=== PATIENT | female | born 1960 ===

== ENCOUNTER → 2017-12-25 13:22 | Outpatient (CLI) | payer BC, SELFPAY ==
--- NOTE | 2017-12-25 13:22 | DI.REPORT_ITS ---
SYMPTOM/DIAGNOSIS: VAGUE LT SIDED POST CHEST PAIN, R07.89 PA AND LATERAL CHEST: The heart is normal in size. The lungs are clear. The mediastinal structures and pleura appear intact. CONCLUSION: Normal chest.
== END ==
PROVIDERS: PCP Family Medicine; Visit Provider Family Medicine
DX: R07.89 Other chest pain (principal)
CPT/HCPCS: 71046

== ENCOUNTER → 2017-12-25 15:16 | Outpatient (CLI) | payer BC, SELFPAY ==
--- NOTE | 2017-12-25 14:20 | DI.REPORT_ITS ---
SYMPTOM/DIAGNOSIS: T SPINE PAIN, H/O COMP FX THORACIC SPINE: There is a mild superior endplate compression fracture of T 9. The vertebral bodies are otherwise unremarkable. There is no evidence of gross disc space narrowing. The posterior elements appear intact. The paravertebral soft tissues are normal. IMPRESSION: There is an apparent old mild superior endplate compression fracture of T 9.
== END ==
PROVIDERS: PCP Family Medicine; Visit Provider Family Medicine
DX: M54.6 Pain in thoracic spine (principal); M48.54XD Collapsed vertebra, not elsewhere classified, thoracic region, subsequent encounter for fracture with routine healing; G89.29 Other chronic pain
CPT/HCPCS: 72072

== ENCOUNTER → 2017-12-29 10:05 | Outpatient (CLI) | payer BC, SELFPAY ==
[2017-12-29 11:53] LABS: Absolute Basophil Count 0.03 k/cumm (0.0-0.2); Absolute Eosinophil Count 0.07 k/cumm (0.0-0.7); Absolute Lymphocyte Count 1.22 k/cumm (1.2-3.4); Absolute Monocyte Count 0.33 k/cumm (0.11-0.7); Absolute Neutrophil Count 2.22 k/cumm (1.2-6.7); Basophils % 0.8; Eosinophils % 1.8; HCT 42.3 % (36.0-46.0); HGB 13.9 g/dL (12.0-15.5); Lymphocytes % 31.5; Mean Corp. HGB Concentration 32.9 g/dL (32.0-36.0); Mean Corpuscular Hemoglobin 30.3 pg (27.0-33.0); Mean Corpuscular Volume 92.4 fL (80-95); Mean Platelet Volume 11.4 fL (8.0-11.0); Monocytes % 8.5; Neutrophils % 57.4; Platelet Count 246 x1000/uL (130-400); RBC 4.58 m/cumm (4.00-5.20); RBC Distribution Width 13.2 % (11.7-14.6); White Blood Cell Count 3.87 k/cumm (4.4-10.8)
[2017-12-29 12:11] LABS: ALT 20 U/L (12-78); AST 13 U/L (15-37); Albumin 3.6 g/dL (3.4-5.0); Alkaline Phosphatase 100 U/L (46-116); Anion Gap 6.7 mmol/L (3-11); BUN 12 mg/dL (7-18); Bilirubin, Total 0.4 mg/dL (0.2-1.0); CO2 31.3 mmol/L (21.0-32.0); CREATININE 0.59 mg/dL (0.55-1.02); Calcium 8.7 mg/dL (8.5-10.1); Chloride 104 mmol/L (98-107); Glucose 82 mg/dL (70-100); Potassium 4.2 mmol/L (3.5-5.1); Sodium 142 mmol/L (136-145); Total Protein 7.1 g/dL (6.4-8.2)
[2017-12-29 12:22] LABS: Vitamin D 25 Total 29.1 ng/ml (30-100)
[2017-12-29 14:31] LABS: Hemoglobin A1C 5.5 % (4.5-6.2)
[2017-12-31 13:45] LABS: HLA-B27 Result Negative
== END ==
PROVIDERS: PCP Family Medicine; Visit Provider Family Medicine
DX: E55.9 Vitamin D deficiency, unspecified (principal); R73.09 Other abnormal glucose; G89.29 Other chronic pain; M54.6 Pain in thoracic spine; R14.0 Abdominal distension (gaseous); Z86.2 Personal history of diseases of the blood and blood-forming organs and certain disorders involving the immune mechanism
CPT/HCPCS: 36415; 80053; 82306; 86812; 83036; 85025; 86140

== ENCOUNTER → 2018-01-01 01:16 | Outpatient (CLI) | payer BC, SELFPAY ==
--- NOTE | 2018-01-01 15:45 | DI.REPORT_ITS ---
SYMPTOM/DIAGNOSIS: CHRONIC BILATERAL THORACIC BACK PAIN M54.6 MRI THORACIC SPINE: Comparison is made with plain films dated 25 Dec 2017 T1, T2, STIR and T2 3-D sagittal and T2 axial sequences were performed. There is slight compression of the superior end plate of T-9. There is normal signal in the T9 vertebral body consistent with an old compression fracture. There is no evidence of retropulsion. There is minimal disc bulging and small end plate osteophytes. The osteophytes are greatest at T7,8 which projects anteriorly. There is a mild amount of degenerative signal change in the anterior aspect of T7-8 vertebral end plates. No disc herniation or mass is seen. The central canal is widely patent. No neural foraminal narrowing is seen. IMPRESSION: Old T-9 compression fracture. Mild degenerative disc changes, greatest at T-7,8 anteriorly
== END ==
PROVIDERS: PCP Family Medicine; Visit Provider Family Medicine
DX: M54.6 Pain in thoracic spine (principal); M51.34 Other intervertebral disc degeneration, thoracic region; G89.29 Other chronic pain
CPT/HCPCS: 72146

== ENCOUNTER → 2018-01-06 10:44 | Outpatient (CLI) | payer BC, SELFPAY ==
[2018-01-06 12:47] LABS: Abs Immature Grans 0.01 k/cumm (0.0-0.09); Absolute Basophil Count 0.02 k/cumm (0.0-0.2); Absolute Eosinophil Count 0.06 k/cumm (0.0-0.7); Absolute Lymphocyte Count 1.24 k/cumm (1.2-3.4); Absolute Monocyte Count 0.36 k/cumm (0.11-0.7); Absolute Neutrophil Count 2.91 k/cumm (1.2-6.7); Basophils % 0.4; Eosinophils % 1.3; HCT 42.3 % (36.0-46.0); HGB 13.7 g/dL (12.0-15.5); Immature Grans % 0.2; Mean Corp. HGB Concentration 32.4 g/dL (32.0-36.0); Mean Corpuscular Hemoglobin 30.3 pg (27.0-33.0); Mean Corpuscular Volume 93.6 fL (80-95); Mean Platelet Volume 11.1 fL (8.0-11.0); Monocytes % 7.8; Neutrophils % 63.3; Platelet Count 252 x1000/uL (130-400); RBC 4.52 m/cumm (4.00-5.20); RBC Distribution Width 13.2 % (11.7-14.6)
[2018-01-07 13:47] LABS: Albumin 59.5 % (55.8-66.1); Total Protein 6.7 g/dl (6.3-8.2)
== END ==
PROVIDERS: PCP Family Medicine; Visit Provider Family Medicine
DX: D72.818 Other decreased white blood cell count (principal); G89.29 Other chronic pain; M54.6 Pain in thoracic spine
CPT/HCPCS: 36415; 84165; 85025

== ENCOUNTER → 2018-01-12 00:15 | Outpatient (CLI) | payer BC, SELFPAY ==
--- NOTE | 2018-01-12 06:59 | DI.REPORT_ITS ---
SYMPTOM/DIAGNOSIS: LUQ PAIN, R10.12, H/O T 9 COMP FX ABDOMEN ULTRASOUND: Routine examination. Comparison is made with 03/01/15. The aorta and IVC are unremarkable. The liver is unremarkable. The patient is status post cholecystectomy. The common duct is within normal limits at .4 cm. The pancreas, kidneys and spleen are all unremarkable. The left upper quadrant was evaluated sonographically and is unremarkable. IMPRESSION: Status post cholecystectomy. Otherwise unremarkable abdomen ultrasound.
== END ==
PROVIDERS: PCP Family Medicine; Visit Provider Family Medicine
DX: R10.12 Left upper quadrant pain (principal); Z90.49 Acquired absence of other specified parts of digestive tract
CPT/HCPCS: 76700

== ENCOUNTER 2018-05-26 11:04 | Outpatient (REF) | payer BC, SELFPAY ==
--- NOTE | 2018-05-26 09:30 | PAPFT_PTH ---
PATIENT: Josselin Carty LOC: [facility] U#:[id number] AGE/SX: 57/F ROOM: RE05/26/[address]: Candie Stoner MD, DC : 1960 BED: DIS: 05/26/2018 SPEC #: [id number] RECD: 05/26/18 13:04 STATUS: PRADIP REQ #: [id number] AMBERLY: 05/26/18 09:[address]: Candie Stoner DEPT: [facility] Cytology RECD BY: Halie Thompson Tissues: 1 - CX/ENDOCX FOR PAP SMEARS Procedures: PAP THIN PREP/UVM Screening HPV DNA PROBE Comments: [id number]
== END 2018-05-26 11:24 ==
LOC: LBN 11:04
PROVIDERS: PCP Family Medicine; Visit Provider Family Medicine
DX: Z12.4 Encounter for screening for malignant neoplasm of cervix (principal); Z11.51 Encounter for screening for human papillomavirus (HPV)
CPT/HCPCS: 88142; 87624

== ENCOUNTER 2018-06-17 05:21 | Outpatient (CLI) | payer BC, SELFPAY ==
--- NOTE | 2018-06-17 14:04 | DI.US_ITS ---
SYMPTOMS/DIAGNOSIS: DYSFUNCTIONAL UTERINE BLEEDING, N93.8, FEELS LIKE PERIOD, POSTMENOPAUSAL X 3 YEARS PELVIC ULTRASOUND: Pelvic ultrasound was performed transabdominally and transvaginally. Please see the accompanying data sheet for measurements of the pelvic structures. The ovaries are not visualized transabdominally or transvaginally. There is no free fluid identified in the cul-de-sac. The uterus is unremarkable in appearance with a 4 mm homogeneous endometrial stripe. Limited scanning of the kidneys is unremarkable. CONCLUSION: Negative pelvic ultrasound. The ovaries are not visualized.
[2018-06-17 14:09] LABS: Abs Immature Grans 0.01 k/cumm (0.0-0.09); Absolute Basophil Count 0.04 k/cumm (0.0-0.2); Absolute Eosinophil Count 0.24 k/cumm (0.0-0.7); Absolute Monocyte Count 0.53 k/cumm (0.11-0.7); Absolute Neutrophil Count 4.32 k/cumm (1.2-6.7); Basophils % 0.6; Eosinophils % 3.5; HCT 39.4 % (36.0-46.0); HGB 13.1 g/dL (12.0-15.5); Immature Grans % 0.1; Lymphocytes % 24.9; Mean Corp. HGB Concentration 33.2 g/dL (32.0-36.0); Mean Corpuscular Hemoglobin 31.1 pg (27.0-33.0); Mean Corpuscular Volume 93.6 fL (80-95); Mean Platelet Volume 10.4 fL (8.0-11.0); Monocytes % 7.7; Neutrophils % 63.2; Platelet Count 258 x1000/uL (130-400); RBC 4.21 m/cumm (4.00-5.20); RBC Distribution Width 13.9 % (11.7-14.6); White Blood Cell Count 6.84 k/cumm (4.4-10.8)
[2018-06-17 15:27] LABS: TSH (W/Ref FT4) 1.54 uIU/mL (0.358-3.74)
== END 2018-06-17 05:41 ==
PROVIDERS: PCP Family Medicine; Visit Provider Family Medicine
DX: N93.8 Other specified abnormal uterine and vaginal bleeding (principal)
CPT/HCPCS: 36415; 76830; 76856; 84443; 85025

== ENCOUNTER 2018-06-25 13:39 | Outpatient (REF) | payer BC, SELFPAY ==
--- NOTE | 2018-06-25 12:00 | ENDOMET_PTH ---
PATIENT: Josselin Carty LOC: [facility] U#:[id number] AGE/SX: 57/F ROOM: RE06/25/[address]: Candie Stoner MD, DC : 1960 BED: DIS: 06/25/2018 SPEC #: [id number] RECD: 06/25/18 18:29 STATUS: PRADIP REQ #: [id number] AMBERLY: 06/25/18 12:[address]: Candie Stoner DEPT: Surgical Specimen RECD BY: Halie Thompson Tissues: 1 - ENDOMETRIUM BX/TEAGAN Procedures: GROSS AND MICRO LEVEL 4 Comments: [id number]
== END 2018-06-25 13:59 ==
LOC: LBN 13:39
PROVIDERS: PCP Family Medicine; Visit Provider Family Medicine
DX: N85.8 Other specified noninflammatory disorders of uterus (principal); N83.8 Other noninflammatory disorders of ovary, fallopian tube and broad ligament
CPT/HCPCS: 88305

== ENCOUNTER 2018-06-29 09:17 | Outpatient (CLI) | payer BC, SELFPAY ==
[2018-06-30 11:37] LABS: LH 29.6 mIU/ml
== END 2018-06-29 09:37 ==
PROVIDERS: PCP Family Medicine; Visit Provider Family Medicine
DX: N93.8 Other specified abnormal uterine and vaginal bleeding (principal)
CPT/HCPCS: 36415; 83001; 83002

== ENCOUNTER 2019-01-06 10:37 | Outpatient (CLI) | payer BC, SELFPAY ==
[2019-01-06 13:25] LABS: TSH (W/Ref FT4) 1.81 uIU/mL (0.36-3.74); Vitamin B12 497 pg/mL (193-986)
[2019-01-06 13:34] LABS: Hemoglobin A1C 5.4 % (4.5-6.2)
== END 2019-01-06 10:57 ==
PROVIDERS: PCP Family Medicine; Visit Provider Family Medicine
DX: G62.9 Polyneuropathy, unspecified (principal)
CPT/HCPCS: 36415; 82607; 83036; 84443

== ENCOUNTER 2019-10-01 08:01 | Outpatient (CLI) | payer BC, SELFPAY ==
[2019-10-01 14:13] LABS: Calculated LDL 93 mg/dL (<100); Cholesterol 207 mg/dL (<200); Glucose 93 mg/dL (74-106); HDL Cholesterol 100 mg/dL (40-60); Triglyceride 70 mg/dL (<150)
[2019-10-01 21:09] LABS: Rheumatoid Factor 18.9 IU/mL (<12.0)
[2019-10-04 08:49] LABS: Cyclic Citrullinated Peptide <2.5 U/mL (<5.0)
[2019-10-04 14:37] LABS: ANA Interpretation Negative (Negative)
== END 2019-10-01 08:21 ==
PROVIDERS: PCP Family Medicine; Visit Provider Family Medicine
DX: Z00.00 Encounter for general adult medical examination without abnormal findings (principal); Z13.220 Encounter for screening for lipoid disorders
CPT/HCPCS: 36415; 80061; 82947; 86200; 86038; 86431

== ENCOUNTER 2019-10-14 07:22 | Outpatient (CLI) | payer BC, SELFPAY ==
--- NOTE | 2019-10-14 07:45 | DI.RAD_ITS ---
EXAM: XR HIP PELVIS ADULT BL CLINICAL HISTORY: hip pain,M25.559. TECHNIQUE: 2D digital imaging was performed. COMPARISON: US US PELVIS TRANSVAGINAL from 06/17/2018 FINDINGS: BONES: No acute fracture is present. No bony destructive lesion is seen. JOINTS: No dislocation present. Hip joint spaces are well maintained. There is minimal acetabular sp urring. There is mild spurring of the SI joints. SOFT TISSUE: Normal. IMPRESSION: Mild degenerative changes. DATA REPOSITORY: RADIATION DOSE DELIVERED:
--- NOTE | 2019-10-14 07:45 | DI.RAD_ITS ---
EXAM: XR LUMBAR SPINE COMPLETE INDICATION: back and hip pain,M54.5,M25.50. COMPARISON: DX DEXA BONE DENSITY WITH GABINO from 12/26/2010 TECHNIQUE: 2D digital imaging was performed. FINDINGS: The vertebral bodies are well maintained in height. There are small endplate osteophytes. There are mild facet degenerative changes at L4-5 and L5-S1. The disc spaces are well maintained. There is n o significant scoliosis. No spondylolysis or spondylolisthesis is seen. IMPRESSION: Mild degenerative changes. DATA REPOSITORY: RADIATION DOSE DELIVERED:
== END 2019-10-14 07:42 ==
PROVIDERS: PCP Family Medicine; Visit Provider Family Medicine
DX: M25.551 Pain in right hip (principal); M25.552 Pain in left hip; M54.5 Low back pain; M16.0 Bilateral primary osteoarthritis of hip; M47.817 Spondylosis without myelopathy or radiculopathy, lumbosacral region
CPT/HCPCS: 73521; 72110

== ENCOUNTER 2020-05-18 03:04 | Outpatient (CLI) | payer BC, SELFPAY ==
[2020-05-19 12:38] LABS: COVID-19 RT-PCR UVMMC Result Negative (Negative)
== END 2020-05-18 03:24 ==
PROVIDERS: PCP Family Medicine; Visit Provider Internal Medicine Cardiovascular Disease
DX: Z11.59 Encounter for screening for other viral diseases (principal); Z01.810 Encounter for preprocedural cardiovascular examination
CPT/HCPCS: U0003

== ENCOUNTER 2020-05-23 00:59 | Outpatient (CLI) | payer BC, SELFPAY ==
--- NOTE | 2020-05-23 07:45 | DI.NM_ITS ---
APPROVED REPORT Exam: Exercise Treadmill Patient Location: Out-Patient Room/Bed: Stress Nurse: Patti Egan RN Ordering Provider:JOSE GIMENEZ, Contact Number: BMI: 26.30 Baseline Rhythm: Sinus Rhythm Indications: Chest pain/pressure. Medical History Medical History: Chronic back pain, Shoulder pain, GERD, Vericose veins, HTN Cardiac Medications: Omeprazole., Allergies: Penicillins. Cardiac Risk Factors: FHX of CAD, HTN, Smoker (former) Previous Cardiac Procedures: None Pretest Chest Pain Characteristics: None Exercise History: Physically active Physical Disabilities: None Lung Sounds: Clear to auscultation Heart Sounds: Regular Stress Test Details Test: Exercise stress testing was performed using a Justin protocol. Nuclear Acquisition: Rest Tc-99m/Stress Tc-99m 1 day Rest Isotope: Tc-99m Sestamibi. Dose: 10.5 Date: 05/23/2020 Injection Time: 1035 Stress Isotope: Tc-99m Sestamibi. Dose: 32.6 Date: 05/23/20 Injection Time: 1200 HR Resting HR Supine: 67 bpm Max Heart Rate (APMHR): 162.351036 bpm Resting HR Standin bpm Target HR (85% APMHR): 137.719787 bpm Max HR Achieved: 171 bpm % of APMHR: 105.56 Recovery HR: 94 bpm HR response to stress: Normal HR response to stress BP Resting BP Supine: 110/88 mmHg Resting BP Standin/88 mmHg Max BP: 188/78 mmHg Recovery BP: 134/78 mmHg BP response to stress: Normal blood pressure response to stress. Comment: Patient denies dizziness. Question accuracy of first BP. ECG Resting ECG: Sinus Rhythm Ectopy: None. Stress ECG: Sinus Tachycardia ST Change: No significant ST segment changes noted. Arrhythmia: None Recovery ECG: Sinus Rhythm Recovery ST Change: No significant ST segment changes noted. Recovery Arrhythmia: Brief episode of trigeminy. Clinical Reason for Termination: Dyspnea Stress Symptoms: Dyspnea Exercise duration: 11 min12 sec Highest Stage Reached: Stage 4: 4.2 mph at 16% grade. Exercise capacity: 13.48 METs Stress ECG Conclusion 1. The patient exercised for 11 minutes (13 METS). The patient no symptoms suggestive of ischemia. 2. There was no evidence of ischemia on the ECG portion of the exam. Stress Test Summary STAGE Time (mins) Speed (mph) Grade (%) HR BP SYMPTOMS METS Supine 67 110/88 Standing 75 150/88 1 3 1.7 10 114 162/74 4.6 2 6 2.5 12 136 170/68 7 3 9 3.4 14 150 172/70 10.2 1 min recovery 152 188/78 3 min recovery 109 156/82 6 min recovery 94 134/78 MPI Conclusion The patient's ejection fraction was 60% with stress. There were no wall motion abnormalities. There is no evidence of ischemia in the imaging portion of the exam. This represents a normal SPECT stress test. Radiologist Interpretation Radiologist Interpretation by: Rolan Wu MD Interpretation Date/Time: 05/23/2020 15:35:42
== END 2020-05-23 01:19 ==
PROVIDERS: PCP Family Medicine; Visit Provider Family Medicine
DX: R07.9 Chest pain, unspecified (principal); Z82.49 Family history of ischemic heart disease and other diseases of the circulatory system; I10 Essential (primary) hypertension; Z87.891 Personal history of nicotine dependence
CPT/HCPCS: 78452; 93017

== ENCOUNTER 2020-08-10 12:23 | Outpatient (REF) | payer BC, SELFPAY ==
--- NOTE | 2020-08-10 08:30 | PAPFT_PTH ---
PATIENT: Josselin Carty LOC: [facility] U#:[id number] AGE/SX: 59/F ROOM: RE08/10/[address]: Candie Stoner MD, DC : 1960 BED: DIS: 08/10/2020 SPEC #: [id number] RECD: 08/10/20 12:49 STATUS: WILMANNikki RELaron #: [id number] AMBERLY: 08/10/20 08:[address]: Cnadie Stoner DEPT: [facility] Cytology RECD BY: Halie Thompson Tissues: 1 - CX/ENDOCX FOR PAP SMEARS Procedures: PAP THIN PREP/UVM Screening HPV DNA PROBE Comments: [id number]
== END 2020-08-10 12:24 | disposition home or self-care (01) ==
LOC: LBN 12:23
PROVIDERS: PCP Family Medicine; Visit Provider Family Medicine
DX: Z12.4 Encounter for screening for malignant neoplasm of cervix (principal); Z11.51 Encounter for screening for human papillomavirus (HPV); Z87.410 Personal history of cervical dysplasia
CPT/HCPCS: 88142; 87624

== ENCOUNTER 2020-08-15 02:01 | Outpatient (CLI) | payer BC, SELFPAY ==
--- NOTE | 2020-08-15 06:30 | DI.MAMMO_ITS ---
EXAM: MAMMO SCREENING CLINICAL HISTORY: screening,Z12.39 TECHNIQUE: Mammograms were interpreted according to the usual protocol including computer analysis w [employer] CAD system, tomosynthesis and C-view imaging. COMPARISON: 2011 FINDINGS: The breasts are composed of scattered fibroglandular densities, Breast Density category B. No suspicious masses or suspicious microcalcifications are seen. No skin thickening or abnormal axillary lymph nodes are seen. There has been no significant change from prior exams. IMPRESSION: BI-RADS Category 1, Negative mammogram Yearly screening mammography is recommended. Breast Density - Category B, scattered fibroglandular densities. A negative radiographic report should not delay biopsy if a dominant or clinically suspicious mass is present. Up to ten percent of cancers are not identified on mammography. A negative report may reinforce clinical impression. Adenosis and dense breasts may obscure an underlying neoplasm. False positive reports average 6 to 10%. Patient will receive a letter notifying them of these results.
== END 2020-08-15 02:21 ==
PROVIDERS: PCP Family Medicine; Visit Provider Family Medicine
DX: Z12.31 Encounter for screening mammogram for malignant neoplasm of breast (principal)
CPT/HCPCS: 77063; 77067

== ENCOUNTER 2021-09-07 06:09 | Day surgery (SDC) | payer BC, SELFPAY ==
--- NOTE | 2021-09-06 21:46 | PDOC.DSDIS_ITS ---
Discharge Plan Disposition Patient Disposition: HOME Condition: Good Discharge Details Reason For Visit: colon scope Attending Provider: Letitia Marquez Primary Care Provider: Candie Stoner Home Meds and New Rx's Prescriptions: No Action cholecalciferol (vitamin D3) 400 unit capsule 400 unit PO DAILY 0RF glucosamine HCl 500 mg tablet 500 mg PO BID 0RF melatonin 5 mg tablet See Rx Instructions PO HS PRN0RF Rx Instructions: 1-2 Tabs PO bedtime PRN; omeprazole 20 mg capsule,delayed release(DR/EC) 20 mg PO DAILY PRN (Reason: gerd) Qty: 90 5RF valacyclovir [Valtrex] 500 mg tablet 500 mg PO BID PRN (Reason: herpes) Qty: 180 3RF Rx Instructions: use as needed for outbreaks duloxetine 60 mg capsule,delayed release(DR/EC) 60 mg PO DAILY Qty: 90 6RF mometasone 50 mcg/actuation spray,non-aerosol 2 spray NS DAILY Qty: 51 4RF estradiol [Yuvafem] 10 mcg tablet QWEEK 0RF Rx Instructions: 10 mcg vaginally Discharge Instructions Additional Instructions: DSU Colonoscopy Post- Op Instructions Instructions for Everyone who is given Anesthesia: For your safety, please do the following for the next twenty-four (24) hours: *Do Not operate a motor vehicle (car, truck, motorcycle, etc.) *Do Not drink alcoholic beverages or use any recreational drugs for the first 24 hours or while taking pain medications. The medications in your body may have a reaction that can be dangerous. *Do Not make any important decisions or sign any important papers. Findings: cystocele. Rectocele diverticula Follow up: Repeat colonoscopy in 5 years time because of family history of colorectal cancer, 1. No lifting over 20 pounds or strenuous activity for the first 24 hours after your procedure. After 24 hours there are no restrictions on your activity but you may feel fatigued for a few days. 2. After you arrive home you may have a light meal and return to your normal diet as you can tolerate it without feeling sick to your stomach. 3. You may have a bloated, gaseous feeling in your belly (abdomen) after a colonoscopy. Passing gas and belching will help. Walking or lying down on your left side with your knees flexed may relieve the discomfort. Call the office at [phone] (Office) or [phone] (Hospital) right away if you notice any of the following: a.Vomiting of blood or ?coffee ground stools?. b.Rectal bleeding 1Tbsp, blood clots or continuous bleeding. c.Severe belly (abdominal) pain. d.A hard distended belly (abdomen) and an inability to pass gas. 4. Please don?t expect to have a normal BM (bowel movement) for 2-3 days after your procedure. 5. If there are questions regarding the findings of your procedure, please contact your doctor 6. If you are unable to contact your doctor with a problem, contact the hospital at [phone]. 7. Continue all your regular medications unless directed otherwise. I understand the above instructions and have no questions. Signature of Patient or Adult Escort Name of Responsible Adult Escort Signature of Nurse Date/Time Activity:: see above Diet:: see above Discharge Orders Discharge Orders: Discharge Order (Routine); Ordered 09/06/21 Ordered By: Letitia Marquez
--- NOTE | 2021-09-06 21:48 | W.COLOREPORT ---
Colonoscopy Report Date of procedure: 09/07/21 Pre-op diagnosis general: family hx of CRC/enterocele Surgeon: Letitia Marquez Anesthesia Type: General:No Airway Disposition: same day Prep: Miralax/Dulcolax Procedure Description: After informed consent was obtained the patient was taken to the procedure room and placed in a left decubitous position. Monitors were applied and a time out was done. The patients name, date of , procedure, allergies to medications and metal in their body was reviewed. A modified pelvic exam was done prior to beginning the procedure which did show a moderate cystocele/rectocele. Patient was then sedated. Once sedated and comfortable a rectal exam was done. External exam: x1 small ext hemorrhoids. Internal exam revealed a normal sphincter tone and no palpable masses. The scope was then introduced and retrofelexed. No internal hemorrhoids were identified. The scope was then advanced to the cecum withoutdifficulty. The TI and appendiceal orifice were identified. The prep was be BPS 2 in all recio for total of 6.. The scope was then slowly retracted over minutes back into the rectum. there are no polyps or AVMs visualized today. She does have mild to moderate diverticular disease that does extend all the way over to the right colon. The mucosa is pink and healthy with normal bowel pattern. She has been having right lower quadrant pain and biopsies were taken in the cecum/80/60 cm and in the rectum. The scope was removed and the patient was woken up and taken back to Same day surgery in stable condition. The patient tolerated the procedure well and there were no immediate complications. Follow up: The patient should follow up in 5 years unless they develop changes in bowel habits or other new gastrointestinal complaints.
[2021-09-07 06:32] VITALS: BP 134/78; PULSE 77; RESP 16; TEMP 36.6; O2SAT 99
[2021-09-07] MEDS: Lactated Ringers 1,000 ML 80 ML IV (06:49)
--- NOTE | 2021-09-07 06:57 | ANES.PREOP_ITS ---
General Info Date of Service Date Performed: 09/07/21 Height: 5 ft 6 in Weight: 70.3 kg Body Mass Index (BMI): 25.0 Surgical Procedure: Operation Date: 09/07/21 07:35 Proposed Procedure Side Surgeon p Colonoscopy w/Biopsy Letitia Marquez, Meds Allergies and Home Medications Allergies Allergy/AdvReac Type Severity Reaction Status Date / Time Penicillins Allergy Intermediate Verified 09/07/21 06:25 Home Medication Medication Instructions Recorded cholecalciferol (vitamin D3) 10 400 unit PO DAILY 05/26/18 mcg (400 unit) capsule glucosamine HCl 500 mg tablet 500 mg PO BID tab 08/10/20 melatonin 5 mg tablet See Rx Instructions PO HS PRN 08/10/20 duloxetine 60 mg capsule,delayed 60 mg PO DAILY #90 cap 05/23/21 release omeprazole 20 mg capsule,delayed 20 mg PO DAILY PRN #90 tab-cap 05/23/21 release valacyclovir 500 mg tablet 500 mg PO BID PRN #180 tab 05/23/21 (Valtrex) mometasone 50 mcg/actuation nasal 2 spray NS DAILY #51 g 08/08/21 spray estradiol 10 mcg vaginal tablet QWEEK 09/07/21 (Yuvafem) Current Visit Medications: Current Medications Generic Name Dose Route Start Last Admin Trade Name Freq PRN Reason Stop Dose Admin Hyoscyamine Sulfate 0.125 mg 09/06/21 21:46 Hyoscyamine 0.125 Mg Sl/Oral/Chew SL DIRECTED PRN Ringer's Solution 1,000 mls @ 80 mls/hr 09/07/21 06:00 09/07/21 06:49 IV 10/06/21 23:59 80 mls/hr INFUSION GRAEME Administration IV Miscellaneous Supplies 1 each 09/07/21 06:00 Iv Access IV 10/06/21 23:59 DIRECTED GRAEME Ondansetron HCl 4 mg 09/06/21 21:46 Ondansetron 4 Mg/2 Ml Vial IVP Q4H PRN PRN Nausea / Vomiting Sodium Chloride 0 ml 09/07/21 06:00 Normal Saline Flush 10 Ml Syr IV 10/06/21 23:59 PRN PRN Sodium Chloride 0 ml 09/07/21 06:00 Normal Saline 10 Ml Vial IJ 10/06/21 23:59 DIRECTED PRN Sterile Water 0 ml 09/07/21 06:00 Water,Injection,Sterile 10 Ml Vial IJ 10/06/21 23:59 DIRECTED PRN PFSH Active Problems Active Problems: Problem Status Onset Code Family history of colon cancer requiring screening colonoscopy Z80.0 Anxiety F41.9 Chest pain R07.9 Hip pain M25.559 Arthralgia M25.50 Low back pain M54.5 Tinnitus, bilateral H93.13 Abnormal auditory perception of right ear H93.291 Right leg pain M79.604 DUB (dysfunctional uterine bleeding) N93.8 Dermatitis, dyshidrotic L30.1 Varicose veins of lower extremity 01/28/12 I83.90 Shoulder pain 06/09/14 M25.519 Rectocele 03/01/14 N81.6 Osteopenia 04/10/08 M85.80 Joint pain M25.50 Herpes 11/14/15 B00.9 Gastroesophageal reflux disease with esophagitis 02/21/15 K21.0 Fracture of thoracic spine S22.009A Eczema 03/01/14 L30.9 Dysphagia 04/17/03 R13.10 Diverticulosis of colon without diverticulitis 03/30/12 K57.30 Deviated nasal septum 06/09/14 J34.2 Chronic rhinitis 06/09/14 J31.0 Chronic bilateral thoracic back pain 12/25/17 M54.6, G89.29 Change in voice 05/18/15 R49.9 Change in mole 06/13/16 D22.9 Annual physical exam 04/04/15 Z00.00 Abdominal discomfort in right upper quadrant 09/18/16 R10.11 Medical History Medical History Allergic rhinitis Diverticulosis large intestine w/o perforation or abscess w/o bleeding Dysphagia Eczema Fracture of thoracic spine GERD (gastroesophageal reflux disease) Osteopenia Rectocele Varicose veins of both lower extremities Surgical History Surgical History Appendectomy (~2003) Cholecystectomy (02/11/12) Colonoscopy - MAC (~2006) 2006, 2011 Tobacco Smoking/Tobacco Use Status: Former Tobacco Use Passive smoking exposure: Yes Second hand exposure: Yes Alcohol Alcohol Intake: current Alcohol intake frequency: a few times a month Alcohol type: beer and wine Substance Use Substance use: Never Substance use type: does not use Vital Signs and Lab Results Vital Signs Most Recent Vital Signs in EMR: Most Recent Vital Signs Temp Pulse Resp BP Pulse Ox 36.6 C 77 16 134/78 99 09/07/21 06:32 09/07/21 06:32 09/07/21 06:32 09/07/21 06:32 09/07/21 06:32 Lab Results Blood Type / Crossmatch: No Data to Display Complete Blood Count: No Data to Display Complete Metabolic Panel: No Data to Display Liver Function Panel: No Data to Display Coagulation Panel: No Data to Display Cardiac Panel: No Data to Display Arterial Blood Gas: No Data to Display Venous Blood Gas: No Data to Display Pancreas Panel: No Data to Display Thyroid Panel: No Data to Display Infectious Disease: No Data to Display Blood Cultures: No Data to Display Toxicology Panel: No Data to Display Imaging and Studies Imaging and Studies Study information below may be from another EMR and interpreted by another provider. Please see original notes in EMR for more complete details. Stress Test Summary: Stress Test RESULTS Arrhythmias: None Angina: None HR response: Max 179 bpm; 106% of target BP response: Normal ST-T changes: MIBI SPECT images: Functional Capacity: Average functional capacity CHEST PAIN - none. ARRHYTHMIAS - none. EKG CHANGES - none. HEART AND BLOOD PRESSURE RESPONSE - normal. FUNCTIONAL CAPACITY - average. CONCLUSION: Negative for ischemia. Dictated by: SHABNAM PONCE MD Dictated:: 02/26/13<Electronically signed by SHABNAM PONCE MD> [id number] Transcribed Date: 02/26/13 Transcribed Time: 1129By: ANTHONY This is privileged, confidential information, intended only for the provider named. Any use or distribution by any person other than this provider is strictly prohibited. If you receive this report in error, please notify us immediately at [phone] and return the original report to us at the address above. Thank you. Anesthesia Assessment and Plan Anesthesia History Personal History: No History of Anesthesia Complications Family History: No Family History of Anesthesia Complications Exercise Tolerance Exercise Tolerance: Metabolic Equivalents>4 Pertinent Negatives Pertinent Negatives: No Symptoms of GERD, No Major Cardiovascular Symptoms or Complaints, No Major Pulmonary Symptoms or Complaints and No History of CVA/TIA Cardiac & Pulmonary Exam Cardiac Exam: Normal S1/S2 Heart Sounds Pulmonary Exam: Clear Bilateral Breath Sounds Implantable Cardiac Device Does patient have a Pacemaker or an ICD?: No Airway Exam Known Difficult Airway: No Mallampati Class: 1 Mouth Opening: Normal (> 3cm) Thyromental Distance: Greater than 3 cm Neck Range of Motion: Full ROM Neck Circumference: Normal Teeth Condition: Normal Dentition ASA Classification ASA Score: ASA 2 Emergency Case?: No NPO Status NPO Status: NPO Clears >2 hours, Solids >8 hours Anesthesia Plan Resuscitation Status: Full Code Anesthesia Technique: General Anesthesia Airway Planned: Natural Airway Monitors Used: Standard Monitors
--- NOTE | 2021-09-07 07:09 | ANES.PREOP_ITS ---
General Info Date of Service Date Performed: 09/07/21 Height: 5 ft 6 in Weight: 70.3 kg Body Mass Index (BMI): 25.0 Surgical Procedure: Operation Date: 09/07/21 07:35 Proposed Procedure Side Surgeon p Colonoscopy w/Biopsy Letitia Marquez, Meds Allergies and Home Medications Allergies Allergy/AdvReac Type Severity Reaction Status Date / Time Penicillins Allergy Intermediate Verified 09/07/21 06:25 Home Medication Medication Instructions Recorded cholecalciferol (vitamin D3) 10 400 unit PO DAILY 05/26/18 mcg (400 unit) capsule glucosamine HCl 500 mg tablet 500 mg PO BID tab 08/10/20 melatonin 5 mg tablet See Rx Instructions PO HS PRN 08/10/20 duloxetine 60 mg capsule,delayed 60 mg PO DAILY #90 cap 05/23/21 release omeprazole 20 mg capsule,delayed 20 mg PO DAILY PRN #90 tab-cap 05/23/21 release valacyclovir 500 mg tablet 500 mg PO BID PRN #180 tab 05/23/21 (Valtrex) mometasone 50 mcg/actuation nasal 2 spray NS DAILY #51 g 08/08/21 spray estradiol 10 mcg vaginal tablet QWEEK 09/07/21 (Yuvafem) Current Visit Medications: Current Medications Generic Name Dose Route Start Last Admin Trade Name Freq PRN Reason Stop Dose Admin Hyoscyamine Sulfate 0.125 mg 09/06/21 21:46 Hyoscyamine 0.125 Mg Sl/Oral/Chew SL DIRECTED PRN Ringer's Solution 1,000 mls @ 80 mls/hr 09/07/21 06:00 09/07/21 06:49 IV 10/06/21 23:59 80 mls/hr INFUSION GRAEME Administration IV Miscellaneous Supplies 1 each 09/07/21 06:00 Iv Access IV 10/06/21 23:59 DIRECTED GRAEME Ondansetron HCl 4 mg 09/06/21 21:46 Ondansetron 4 Mg/2 Ml Vial IVP Q4H PRN PRN Nausea / Vomiting Sodium Chloride 0 ml 09/07/21 06:00 Normal Saline Flush 10 Ml Syr IV 10/06/21 23:59 PRN PRN Sodium Chloride 0 ml 09/07/21 06:00 Normal Saline 10 Ml Vial IJ 10/06/21 23:59 DIRECTED PRN Sterile Water 0 ml 09/07/21 06:00 Water,Injection,Sterile 10 Ml Vial IJ 10/06/21 23:59 DIRECTED PRN PFSH Active Problems Active Problems: Problem Status Onset Code Family history of colon cancer requiring screening colonoscopy Z80.0 Anxiety F41.9 Chest pain R07.9 Hip pain M25.559 Arthralgia M25.50 Low back pain M54.5 Tinnitus, bilateral H93.13 Abnormal auditory perception of right ear H93.291 Right leg pain M79.604 DUB (dysfunctional uterine bleeding) N93.8 Dermatitis, dyshidrotic L30.1 Varicose veins of lower extremity 01/28/12 I83.90 Shoulder pain 06/09/14 M25.519 Rectocele 03/01/14 N81.6 Osteopenia 04/10/08 M85.80 Joint pain M25.50 Herpes 11/14/15 B00.9 Gastroesophageal reflux disease with esophagitis 02/21/15 K21.0 Fracture of thoracic spine S22.009A Eczema 03/01/14 L30.9 Dysphagia 04/17/03 R13.10 Diverticulosis of colon without diverticulitis 03/30/12 K57.30 Deviated nasal septum 06/09/14 J34.2 Chronic rhinitis 06/09/14 J31.0 Chronic bilateral thoracic back pain 12/25/17 M54.6, G89.29 Change in voice 05/18/15 R49.9 Change in mole 06/13/16 D22.9 Annual physical exam 04/04/15 Z00.00 Abdominal discomfort in right upper quadrant 09/18/16 R10.11 Medical History Medical History Allergic rhinitis Diverticulosis large intestine w/o perforation or abscess w/o bleeding Dysphagia Eczema Fracture of thoracic spine GERD (gastroesophageal reflux disease) Osteopenia Rectocele Varicose veins of both lower extremities Surgical History Surgical History Appendectomy (~2003) Cholecystectomy (02/11/12) Colonoscopy - MAC (~2006) 2006, 2011 Tobacco Smoking/Tobacco Use Status: Former Tobacco Use Passive smoking exposure: Yes Second hand exposure: Yes Alcohol Alcohol Intake: current Alcohol intake frequency: a few times a month Alcohol type: beer and wine Substance Use Substance use: Never Substance use type: does not use Vital Signs and Lab Results Vital Signs Most Recent Vital Signs in EMR: Most Recent Vital Signs Temp Pulse Resp BP Pulse Ox 36.6 C 77 16 134/78 99 09/07/21 06:32 09/07/21 06:32 09/07/21 06:32 09/07/21 06:32 09/07/21 06:32 Lab Results Blood Type / Crossmatch: No Data to Display Complete Blood Count: No Data to Display Complete Metabolic Panel: No Data to Display Liver Function Panel: No Data to Display Coagulation Panel: No Data to Display Cardiac Panel: No Data to Display Arterial Blood Gas: No Data to Display Venous Blood Gas: No Data to Display Pancreas Panel: No Data to Display Thyroid Panel: No Data to Display Infectious Disease: No Data to Display Blood Cultures: No Data to Display Toxicology Panel: No Data to Display Imaging and Studies Imaging and Studies Study information below may be from another EMR and interpreted by another provider. Please see original notes in EMR for more complete details. EKG Summary: Exam: Resting ECG Patient Location: O HR:58 bpm ECG Measurements Heart Rate 58 AXIS DC 164 P 37 QRSd 96 QRS 48 QT 432 T34 QTc 424 Conclusion Sinus bradycardia...rate< 60 Consider left ventricular hypertrophy...(S V1+R V5/V6) >3.25mV Stress Test Summary: Stress Test RESULTS Arrhythmias: None Angina: None HR response: Max 179 bpm; 106% of target BP response: Normal ST-T changes: MIBI SPECT images: Functional Capacity: Average functional capacity CHEST PAIN - none. ARRHYTHMIAS - none. EKG CHANGES - none. HEART AND BLOOD PRESSURE RESPONSE - normal. FUNCTIONAL CAPACITY - average. CONCLUSION: Negative for ischemia. Dictated by: SHABNAM PONCE MD Dictated:: 02/26/13<Electronically signed by SHABNAM PONCE MD> [id number] Transcribed Date: 02/26/13 Transcribed Time: 1129By: [email or web address] This is privileged, confidential information, intended only for the provider named. Any use or distribution by any person other than this provider is strictly prohibited. If you receive this report in error, please notify us immediately at [phone] and return the original report to us at the address above. Thank you. Anesthesia Assessment and Plan Anesthesia History Personal History: No History of Anesthesia Complications Family History: No Family History of Anesthesia Complications Exercise Tolerance Exercise Tolerance: Metabolic Equivalents>4 Cardiac & Pulmonary Exam Cardiac Exam: Normal S1/S2 Heart Sounds Pulmonary Exam: Clear Bilateral Breath Sounds Implantable Cardiac Device Does patient have a Pacemaker or an ICD?: No Airway Exam Known Difficult Airway: No Mallampati Class: 1 Mouth Opening: Normal (> 3cm) Thyromental Distance: Greater than 3 cm Neck Range of Motion: Full ROM Neck Circumference: Normal Teeth Condition: Normal Dentition ASA Classification ASA Score: ASA 2 Emergency Case?: No NPO Status NPO Status: NPO Clears >2 hours, Solids >8 hours Anesthesia Plan Resuscitation Status: Full Code Anesthesia Technique: General Anesthesia Airway Planned: Natural Airway Monitors Used: Standard Monitors
[2021-09-07 07:14] VITALS: BMI 25.0
--- NOTE | 2021-09-07 07:49 | BOWEL_PTH ---
PATIENT: Josselin Carty LOC: [facility] U#:[id number] AGE/SX: 61/F ROOM: RE09/07/[address]: Letitia Marquez : 1960 BED: DIS: 09/07/2021 SPEC #: [id number] RECD: 09/07/21 12:03 STATUS: PRADIP RELaron #: [id number] AMBERLY: 09/07/21 07:[address]: Letitia Marquez DEPT: Surgical Specimen RECD BY: Halie Thompson ENTERED: 09/07/21 12:06 SP TYPE: Bowel OTHR DR: Candie Stoner MD, DC Tissues: 1 - BIOPSY BOWEL 2 - BIOPSY BOWEL 3 - BIOPSY BOWEL 4 - BIOPSY BOWEL Procedures: GROSS AND MICRO LEVEL 4 Comments: [id number]
[2021-09-07 08:05] VITALS: BP 130/90; PULSE 70; RESP 16; TEMP 36.5; O2SAT 97
--- NOTE | 2021-09-07 08:19 | W.ANESPOSTOP ---
Postoperative Evaluation Date, Time and Location Date Performed: 09/07/21 Time Performed: 08:19 Patient Location: Day Surgery Unit Vital Signs Most Recent Imported Vital Signs: Most Recent Vital Signs Temp Pulse Resp BP Pulse Ox 36.5 C 70 16 130/90 97 09/07/21 08:05 09/07/21 08:05 09/07/21 08:05 09/07/21 08:05 09/07/21 08:05 Pain Score Most Recent Pain Score: Most Recent Pain Score Pain Level 0 09/07/21 08:05 Assessment Mental Status: Awake (Alert & Oriented to Patient Baseline) Airway and Respiratory Function: Patent airway with normal (patient baseline) respiratory exam Cardiovascular Function: Hemodynamically Stable Hydration Status: Adequately Hydrated Nausea & Vomiting: No Nausea or Vomiting Pain: Pt. Denies Any Pain Peripheral Nerve Block: Patient did not receive a nerve block
--- NOTE | 2021-09-07 08:23 | PDOC.DSDIS_ITS ---
Discharge Plan Disposition Patient Disposition: HOME Condition: Good Discharge Details Reason For Visit: colon scope Attending Provider: Letitia Marquez Primary Care Provider: Candie Stoner Home Meds and New Rx's Prescriptions: No Action cholecalciferol (vitamin D3) 400 unit capsule 400 unit PO DAILY 0RF glucosamine HCl 500 mg tablet 500 mg PO BID 0RF melatonin 5 mg tablet See Rx Instructions PO HS PRN0RF Rx Instructions: 1-2 Tabs PO bedtime PRN; omeprazole 20 mg capsule,delayed release(DR/EC) 20 mg PO DAILY PRN (Reason: gerd) Qty: 90 5RF valacyclovir [Valtrex] 500 mg tablet 500 mg PO BID PRN (Reason: herpes) Qty: 180 3RF Rx Instructions: use as needed for outbreaks duloxetine 60 mg capsule,delayed release(DR/EC) 60 mg PO DAILY Qty: 90 6RF mometasone 50 mcg/actuation spray,non-aerosol 2 spray NS DAILY Qty: 51 4RF estradiol [Yuvafem] 10 mcg tablet QWEEK 0RF Rx Instructions: 10 mcg vaginally Discharge Instructions Additional Instructions: DSU Colonoscopy Post- Op Instructions Instructions for Everyone who is given Anesthesia: For your safety, please do the following for the next twenty-four (24) hours: *Do Not operate a motor vehicle (car, truck, motorcycle, etc.) *Do Not drink alcoholic beverages or use any recreational drugs for the first 24 hours or while taking pain medications. The medications in your body may have a reaction that can be dangerous. *Do Not make any important decisions or sign any important papers. Findings: cystocele. Rectocele diverticula https:// www.[facility]org/conditions-treatments/lcrmhd-nugzgo-bjhhrq-floor-disorder s f/u at [facility]/Pelvic Floor Disorders clinic Follow up: Repeat colonoscopy in 5 years time because of family history of colorectal cancer, 1. No lifting over 20 pounds or strenuous activity for the first 24 hours after your procedure. After 24 hours there are no restrictions on your activity but you may feel fatigued for a few days. 2. After you arrive home you may have a light meal and return to your normal diet as you can tolerate it without feeling sick to your stomach. 3. You may have a bloated, gaseous feeling in your belly (abdomen) after a colonoscopy. Passing gas and belching will help. Walking or lying down on your left side with your knees flexed may relieve the discomfort. Call the office at [phone] (Office) or [phone] (Hospital) right away if you notice any of the following: a.Vomiting of blood or ?coffee ground stools?. b.Rectal bleeding 1Tbsp, blood clots or continuous bleeding. c.Severe belly (abdominal) pain. d.A hard distended belly (abdomen) and an inability to pass gas. 4. Please don?t expect to have a normal BM (bowel movement) for 2-3 days after y our procedure. 5. If there are questions regarding the findings of your procedure, please contact your doctor 6. If you are unable to contact your doctor with a problem, contact the hospital at [phone]. 7. Continue all your regular medications unless directed otherwise. I understand the above instructions and have no questions. Signature of Patient or Adult Escort Name of Responsible Adult Escort Signature of Nurse Date/Time Activity:: see above Diet:: see above Discharge Orders Discharge Orders: Discharge Order (Routine); Ordered 09/06/21 Ordered By: Letitia Marquez
[2021-09-07 08:35] VITALS: BP 144/83; PULSE 66; RESP 16; TEMP 36.7; O2SAT 98
[2021-09-07 21:18] VITALS: BMI 25.0
== END 2021-09-07 09:40 | disposition home or self-care (01) ==
LOC: SUR 06:10
PROVIDERS: PCP Family Medicine; Visit Provider Surgery
PROC: 0DJD8ZZ Inspection of Lower Intestinal Tract, Via Natural or Artificial Opening Endoscopic (ICD-10-PCS; CPT 45378; principal; 2021-09-07 07:30)
DX: Z80.0 Family history of malignant neoplasm of digestive organs; K64.4 Residual hemorrhoidal skin tags; K57.30 Diverticulosis of large intestine without perforation or abscess without bleeding; R10.31 Right lower quadrant pain
CPT/HCPCS: 45380; 88305; J2001